=== PATIENT | female | born 1935 | race Caucasian/White ===

== ENCOUNTER 2016-04-03 10:58 | Inpatient (IN) | payer MEDICARE, OTHER ==
[~2016-04-03] VITALS: Ht 154.9 cm; Wt 140.0 kg
[2016-04-03 11:03] VITALS: BP 108/58; PULSE 102; RESP 20; TEMP 97.3; O2SAT 95
[2016-04-03] MEDS: SODIUM CHLOR 0.9% 1000 ML INJ 1,000 ML IV SCH ×2 (11:29→17:23)
[2016-04-03] MEDS ORDERED: PANTOPRAZOLE SODIUM 40 MG VIAL IVP ONE (11:30)
[2016-04-03] MEDS ORDERED: ONDANSETRON HCL 4 MG/2 ML VIAL IVP ONE (11:30)
[2016-04-03 11:34] VITALS: BP 95/61; PULSE 78; RESP 20; TEMP 97.4; O2SAT 95
--- NOTE | 2016-04-03 11:39 | PD ---
HPI Chief Complaint: General Weakness Time Seen by Provider: 11:20 Travel History International Travel<30 days: No Contact w/Intl Traveler<30days: No Traveled to known affect area: No History of Present Illness HPI 80-year-old female complains of abdominal pain, nausea vomiting, poor appetite. Family member states that the symptoms started a week ago. [facility] and had blood tests done and CT scan abdomen and pelvis done. 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 Patient also was Found to have UTI and put on cefuroxime. Patient has history of atrial fibrillation and on Xarelto. Patient also has history hypertension and dyslipidemia. Family member noticed patient has increasing jaundice for the past several days. Patient has poor appetite and has not been eating or drinking much recently. [facility] Social History Tobacco Use: No Allergies-Medications (Allergen,Severity, Reaction): Coded Allergies: Hydrocodone (Verified Allergy, Severe, Hallucinations, 04/03/16) Vasotec (Verified Allergy, Severe, Hallucinations, 04/03/16) Reported Meds & Prescriptions Reported Meds & Active Scripts Active Reported Atorvastatin (Atorvastatin Calcium) 40 Mg Tab 40 Mg PO HS Nystatin Liq 100,000 unit/ml Susp 5 Ml PO QID Protonix (Pantoprazole Sodium) 40 Mg Tab 40 Mg PO DAILY Galantamine (Galantamine Hydrobromide) 8 Mg Tab 8 Mg PO DAILY Diovan (Valsartan) 160 Mg Tab 160 Mg PO DAILY Xarelto (Rivaroxaban) 20 Mg Tab 20 Mg PO DAILY Review of Systems General / Constitutional: No: Fever Eyes: No: Visual changes HENT: No: Headaches Cardiovascular: No: Chest Pain or Discomfort Respiratory: No: Shortness of Breath Gastrointestinal: Positive: Nausea, Vomiting, Abdominal Pain Genitourinary: No: Dysuria Musculoskeletal: No: Pain Skin: Positive Change in Pigmentation, No Rash Neurologic: No: Weakness Psychiatric: No: Depression Endocrine: No: Polydipsia Hematologic/Lymphatic: No: Easy Bruising Physical Exam Narrative GENERAL: Well-nourished, well-developed patient. SKIN: Warm and dry. Icteric HEAD: Normocephalic. EYES: Bilateral scleral icterus. No injection or drainage. NECK: Supple, trachea midline. No JVD or lymphadenopathy. CARDIOVASCULAR: Regular rate and rhythm without murmurs, gallops, or rubs. RESPIRATORY: Breath sounds equal bilaterally. No accessory muscle use. GASTROINTESTINAL: Abdomen soft, non-tender, nondistended. MUSCULOSKELETAL: No cyanosis, or edema. BACK: Nontender without obvious deformity. No CVA tenderness. Neurologic exam: Patient's awake and alert oriented to name. Patient moves all extremities well. No obvious focal neurological deficit. Data Data Last Documented VS Vital Signs Date Time Temp Pulse Resp B/P Pulse Ox O2 Delivery O2 Flow Rate FiO2 04/03/16 12:29 97 04/03/16 11:34 97.4 78 20 95/61 04/03/16 11:03 Room Air Orders Complete Blood Count With Diff (04/03/16 11:29) Comprehensive Metabolic Panel (04/03/16 11:29) Prothrombin Time / Inr (Pt) (04/03/16 11:29) Act Partial Throm Time (Ptt) (04/03/16 11:29) Urinalysis - C+S If Indicated (04/03/16 11:29) Ct Abd/Pel W Iv Contrast(Rout) (04/03/16 11:29) Iv Access Insert/Monitor (04/03/16 11:29) Ecg Monitoring (04/03/16 11:29) Oximetry (04/03/16 11:29) Ondansetron Inj (Zofran Inj) (04/03/16 11:30) Pantoprazole Inj (Protonix Inj) (04/03/16 11:30) Sodium Chlor 0.9% 1000 Ml Inj (Ns 1000 M (04/03/16 11:29) Electrocardiogram (04/03/16 11:29) Chest, Single Ap (04/03/16 11:29) Ammonia (04/03/16 13:42) Iohexol 350 Inj (Omnipaque 350 Inj) (04/03/16 14:12) Lipase (04/03/16 16:06) Mri Abdomen W&W/O Contrast (04/03/16 ) Admit Order (Ed Use Only) (04/03/16 16:16) Labs Laboratory Tests Test 04/03/16 04/03/16 04/03/16 11:55 13:35 14:50 White Blood Count 6.3 TH/MM3 Red Blood Count 4.34 MIL/MM3 Hemoglobin 13.4 GM/DL Hematocrit 39.5 % Mean Corpuscular Volume 91.0 FL Mean Corpuscular Hemoglobin 30.8 PG Mean Corpuscular Hemoglobin 33.8 % Concent Red Cell Distribution Width 16.0 % Platelet Count 242 TH/MM3 Mean Platelet Volume 8.6 FL Neutrophils (%) (Auto) 77.9 % Lymphocytes (%) (Auto) 11.6 % Monocytes (%) (Auto) 9.1 % Eosinophils (%) (Auto) 0.2 % Basophils (%) (Auto) 1.2 % Neutrophils # (Auto) 4.9 TH/MM3 Lymphocytes # (Auto) 0.7 TH/MM3 Monocytes # (Auto) 0.6 TH/MM3 Eosinophils # (Auto) 0.0 TH/MM3 Basophils # (Auto) 0.1 TH/MM3 CBC Comment DIFF FINAL Differential Comment Prothrombin Time 17.0 SEC Prothromb Time International 1.5 RATIO Ratio Activated Partial 42.6 SEC Thromboplast Time Sodium Level 136 MEQ/L Potassium Level 4.6 MEQ/L Chloride Level 101 MEQ/L Carbon Dioxide Level 29.0 MEQ/L Anion Gap 6 MEQ/L Blood Urea Nitrogen 14 MG/DL Creatinine 0.90 MG/DL Estimat Glomerular Filtration 60 ML/MIN Rate Random Glucose 107 MG/DL Calcium Level 8.2 MG/DL Total Bilirubin 5.5 MG/DL Aspartate Amino Transf 214 U/L (AST/SGOT) Alanine Aminotransferase 161 U/L (ALT/SGPT) Alkaline Phosphatase 979 U/L Total Protein 6.4 GM/DL Albumin 2.3 GM/DL Lipase 449 U/L Urine Color YELLOW Urine Turbidity CLEAR Urine pH 6.5 Urine Specific [place] 1.012 Urine Protein NEG mg/dL Urine Glucose (UA) NEG mg/dL Urine Ketones NEG mg/dL Urine Occult Blood NEG Urine Nitrite NEG Urine Bilirubin NEG Urine Urobilinogen LESS THAN 2.0 MG/DL Urine Leukocyte Esterase NEG Urine RBC LESS THAN 1 /hpf Urine WBC 1 /hpf Microscopic Urinalysis Comment CULT NOT INDICATED Ammonia 17 MCMOL/L MDM Medical Decision Making Medical Screen Exam Complete: Yes Emergency Medical Condition: Yes Interpretation(s) 1340 p.m. Last Impressions Chest X-Ray 04/03/16 1129 Signed Impressions: Service Date/Time: Sunday, April 03, 2016 12:03 - CONCLUSION: 1. Blunting of the right costophrenic angle either related to small effusion or pleural/parenchymal scarring. 2. No pneumoperitoneum observed. Sal Walden Jr., MD 1340 p.m. CBC within normal limit. Calcium 8.2. Total bili 5.5. AST 214. ALT 161. Alkaline phosphatase 97 9. INR 1.5. 1552 PM. Last Impressions Chest X-Ray 04/03/169 Signed Impressions: Service Date/Time: Sunday, April 03, 2016 12:03 - CONCLUSION: 1. Blunting of the right costophrenic angle either related to small effusion or pleural/parenchymal scarring. 2. No pneumoperitoneum observed. Sal Walden Jr., MD Abdomen/Pelvis CT 04/03/161128 Signed Impressions: Service Date/Time: Sunday, April 03, 2016 14:03 - CONCLUSION: 1. Intrahepatic biliary dilatation with concern for possible pancreatic head mass versus mass at the level the danielle hepatis. Consider MRI to further evaluate. 2. Wall thickening involving the stomach. Exact etiology is uncertain. I'm not able to differentiate whether this relates to an infiltrating mass or this relates to an inflammatory process. 3. Mild hydronephrosis and hydroureter on the right. No obstructing lesion or stone observed. 4. Small volume ascites. 5. Small bilateral pleural effusions. Sal Walden Jr., MD Differential Diagnosis Differential diagnosis including gastritis, PUD, gastritis, cholecystitis, pancreatitis, colitis, UTI, pyelonephritis. Narrative Course 80-year-old female with abdominal pain, nausea vomiting, jaundice. Abnormal CT scan abdomen pelvis recently. Normal saline solution 1 25 cc an hour. Protonix 40 mg IV. Zofran 4 mg IV. Diagnosis Primary Impression: Pancreatic mass Additional Impressions: Jaundice Elevated LFTs Omid Yañez MD Apr 03, 2016 11:39
[2016-04-03] MEDS ORDERED: LIPI40TA PO (11:56)
[2016-04-03] MEDS ORDERED: XARE20TA PO (11:56)
[2016-04-03] MEDS ORDERED: DIOV160T6 PO (11:57)
[2016-04-03] MEDS ORDERED: GALA8TAB PO (11:59)
[2016-04-03] MEDS ORDERED: PROT40TA PO (12:00)
[2016-04-03] MEDS ORDERED: NYST1000 PO (12:03)
[2016-04-03 12:10] LABS: AUTOMATED NEUTROPHIL # 4.9 TH/MM3 (1.8-7.7); BASOPHIL # 0.1 TH/MM3 (0-0.2); BASOPHIL % 1.2 % (0.0-2.0); EOSINOPHIL % 0.2 % (0.0-4.0); HEMATOCRIT 39.5 % (35.0-46.0); HEMO FLAGS DIFF FINAL; LYMPH % 11.6 % (9.0-44.0); LYMPHOCYTE # 0.7 TH/MM3 (1.0-4.8); MEAN CORPUSCULAR HEMOGLOBIN 30.8 PG (27.0-34.0); MEAN CORPUSCULAR HGB CONC 33.8 % (32.0-36.0); MONO % 9.1 % (0.0-8.0); NEUT % 77.9 % (16.0-70.0); PLATELET COUNT 242 TH/MM3 (150-450); RED BLOOD COUNT 4.34 MIL/MM3 (4.00-5.30); WHITE BLOOD COUNT 6.3 TH/MM3 (4.0-11.0)
[2016-04-03 12:23] LABS: APTT (PATIENT) 42.6 SEC (24.3-30.1); INTERNATIONAL NORMALIZED RATIO 1.5 RATIO
--- NOTE | 2016-04-03 12:24 | RADRPT ---
EXAM DATE/TIME: 04/03/2016 12:03 [facility] COMPARISON: No previous studies available for comparison. INDICATIONS : General weakness, confusion. MEDICAL HISTORY : Hypertension. SURGICAL HISTORY : None. ENCOUNTER: Initial ACUITY: 1 week PAIN SCORE: 0/10 LOCATION: chest FINDINGS: A single portable frontal view of the chest shows blunting of the right costophrenic angle. Heart nor mal in size. Lungs are clear. The scoliotic and degenerative thoracic spine. No pneumothorax. No free air below either hemidiaphragm. CONCLUSION: 1. Blunting of the right costophrenic angle either related to small effusion or pleural/parenchymal s carring. 2. No pneumoperitoneum observed. Sal Walden Jr., MD on April 03, 2016 at 12:22 Board Certified Radiologist. This report was verified electronically.
[2016-04-03 12:29] VITALS: O2SAT 97
[2016-04-03 12:36] LABS: ANION GAP 6 MEQ/L (5-15); AST (GOT) 214 U/L (15-37); BLOOD UREA NITROGEN 14 MG/DL (7-18); CHLORIDE 101 MEQ/L (98-107); GLOMERULAR FILTRATION RATE 60 ML/MIN (>89); POTASSIUM 4.6 MEQ/L (3.5-5.1); SODIUM (NA) 136 MEQ/L (136-145)
[2016-04-03 12:47] LABS: ALKALINE PHOSPHATASE 979 U/L (45-117); ALT (GPT) 161 U/L (10-53); TOTAL BILIRUBIN ADULT 5.5 MG/DL (0.2-1.0)
[2016-04-03 13:42] LABS: BLOOD, URINE NEG (NEG); GLUCOSE,URINE NEG (NEG); KETONE, URINE NEG (NEG); NITRITE,URINE NEG (NEG); PH, URINE 6.5 (5.0-8.5); URINE COLOR YELLOW (YELLW/STRAW)
[2016-04-03 13:44] LABS: COMMENT (UR) CULT NOT INDICATED; CULTURE IF INDICATED CULT NOT INDICATED
[2016-04-03] MEDS ORDERED: IOHEXOL 350 MG/ML 10 ML VIAL (for RAD DIAG) IV ONE (14:12)
--- NOTE | 2016-04-03 15:42 | RADRPT ---
EXAM DATE/TIME: 04/03/2016 14:03 [facility] COMPARISON: No previous studies available for comparison. INDICATIONS : Diffuse abdominal pain with jaundice. Nausea and vomiting. IV CONTRAST: 95 cc Omnipaque 350 (iohexol) IV ORAL CONTRAST: No oral contrast ingested. RADIATION DOSE: 9.96 CTDIvol (mGy) MEDICAL HISTORY : None SURGICAL HISTORY : None. ENCOUNTER: Initial ACUITY: 1 week PAIN SCALE: 5/10 LOCATION: Diffuse abdomen. TECHNIQUE: Volumetric scanning of the abdomen and pelvis was performed. Using automated exposure control and ad justment of the mA and/or kV according to patient size, radiation dose was kept as low as reasonably achievable to obtain optimal diagnostic quality images. FINDINGS: LOWER LUNGS: Bilateral small pleural effusions. The right is larger than the left. No pericardial effusion. LIVER: Intrahepatic biliary dilatation is observed. This is most pronounced involving the left lobe. No disc rete hepatic mass observed. The portal vein is patent. Gallbladder is distended without stones. SPLEEN: Normal size without lesion. PANCREAS: The pancreatic tail shows some atrophy and mild dilatation of the pancreatic duct. The pancreatic hea d is prominent but I am not able to identify a discrete mass. KIDNEYS: There is moderate hydronephrosis and mild hydroureter on the right. No discernible stone or a destruc tive lesion observed. The left kidney is normal. ADRENAL GLANDS: Within normal limits. VASCULAR: There is no aortic aneurysm. BOWEL/MESENTERY: There is diffuse wall thickening involving the stomach most pronounced within the antrum. The remaini ng bowel structures are unremarkable. A small volume of ascitic fluid is noted. Colonic diverticulosi s is observed. ABDOMINAL WALL: Within normal limits. RETROPERITONEUM: There is no lymphadenopathy. BLADDER: No wall thickening or mass. REPRODUCTIVE: Within normal limits. INGUINAL: There is no lymphadenopathy or hernia. MUSCULOSKELETAL: A femoral neck screw seen on the right. CONCLUSION: 1. Intrahepatic biliary dilatation with concern for possible pancreatic head mass versus mass at the level the danielle hepatis. Consider MRI to further evaluate. 2. Wall thickening involving the stomach. Exact etiology is uncertain. I'm not able to differentiate whether this relates to an infiltrating mass or this relates to an inflammatory process. 3. Mild hydronephrosis and hydroureter on the right. No obstructing lesion or stone observed. 4. Small volume ascites. 5. Small bilateral pleural effusions. Sal Walden Jr., MD on April 03, 2016 at 14:38 Board Certified Radiologist. This report was verified electronically.
--- NOTE | 2016-04-03 16:41 | HHI.HP ---
[facility] Primary [facility] Physician No Primary Care Physician Admission Diagnosis pancreatic mass. Jaundice. Elevated LFTs. Diagnoses: (1) Jaundice Diagnosis: Principal (2) Elevated LFTs Diagnosis: Principal Chief Complaint: generalized weakness Travel History International Travel<30 Days: No Contact w/Intl Traveler <30 Da: No Traveled to Known Affected Are: No History of Present Illness patient is a 80 y/o female with history of dementia, CVA,atrial fibrillation and hypertension who was brought to ER with generalized weakness. most of the information was obtained from her daughter at the bedside. she says that she started to feel weak a few months ago and it seems that it's been getting worse. she was admitted to the hospital recently and was discharged after she was treated with UTI. her daughter says that she's lost about forty pounds since last January. her appetite is poor. she denies any abdominal pain, nausea or vomiting. there's no history of fever, chills or night sweats. she had paracentesis recently and during the recent hospital admission. Review of Systems Constitutional: COMPLAINS OF: Weight loss, Change in appetite, DENIES: Fever, Chills, Night Sweats Eyes: DENIES: Blurred vision, Diplopia, Vision loss, Double Vision Ears, nose, mouth, throat: DENIES: Tinnitus, Vertigo, Throat pain, Epistaxis Respiratory: DENIES: Apneas, Cough, Snoring, Wheezing, Hemoptysis, Sputum production, Shortness of breath Cardiovascular: DENIES: Chest pain, Palpitations, Syncope, Dyspnea on Exertion , PND, Lower Extremity Edema, Orthopnea, Claudication Gastrointestinal: DENIES: Abdominal pain, Black stools, Bloody stools, Constipation, Diarrhea, Nausea, Vomiting, Difficulty Swallowing, Anorexia Genitourinary: DENIES: Urinary frequency, Urgency, Hematuria, Dysuria Musculoskeletal: DENIES: Joint pain, Muscle aches, Stiffness, Joint Swelling Integumentary: DENIES: Rash Neurologic: DENIES: Abnormal gait, Headache, Localized weakness, Paresthesias, Seizures, Speech Problems, Tremor, Poor Balance Psychiatric: DENIES: Anxiety, Confusion, Mood changes, Depression, Hallucinations, Agitation, Suicidal Ideation, Homicidal Ideation, Delusions Past Family Social History Past Medical History atrial fibrillation CVA dementia hypertension Past Surgical History recent paracentesis Reported Medications Nystatin Liq 100,000 unit/ml Susp 5 Ml PO QID Protonix (Pantoprazole Sodium) 40 Mg Tab 40 Mg PO DAILY Galantamine (Galantamine Hydrobromide) 8 Mg Tab 8 Mg PO DAILY Diovan (Valsartan) 160 Mg Tab 160 Mg PO DAILY Xarelto (Rivaroxaban) 20 Mg Tab 20 Mg PO DAILY Allergies: Coded Allergies: Hydrocodone (Verified Allergy, Severe, Hallucinations, 04/03/16) Vasotec (Verified Allergy, Severe, Hallucinations, 04/03/16) Active Ordered Medications Current Medications Ondansetron HCl (Zofran Inj) 4 mg ONCE ONCE IVP Last administered on 11:30; Start 04/03/16 at 11:30; Stop 04/03/16 at 11:31; Status DC Pantoprazole Sodium 40 mg 40 mg ONCE ONCE IVP Last administered on 04/03/16 11:30; Start 04/03/16 at 11:30; Stop 04/03/16 at 11:31; Status DC Sodium Chloride (NS 1000 ml Inj) 1,000 ml @ 125 mls/hr Q8H IV Last administered on 04/03/16 11:29; Start 04/03/16 at 11:29; Stop 04/03/16 at 19:28 Iohexol (Omnipaque 350 Inj) 95 ml STK-MED ONCE IV Last administered on 14:12; Start 04/03/16 at 14:12; Stop 04/03/16 at 14:13; Status DC Family History not relevant to this admission. Social History no smoking or drinking. the daughter is planning to take her home. Physical Exam Vital Signs Vital Signs Date Time Temp Pulse Resp B/P Pulse Ox O2 Delivery O2 Flow Rate FiO2 04/03/16 12:29 97 04/03/16 11:34 97.4 78 20 95/61 95 04/03/16 11:03 97.3 102 20 108/58 95 Room Air Physical Exam GENERAL: jaundiced, in no apparent distress. SKIN: No rashes, ecchymoses or lesions. Cool and dry. HEAD: Atraumatic. Normocephalic. No temporal or scalp tenderness. EYES: Pupils equal round and reactive. Extraocular motions intact. No scleral icterus. No injection or drainage. ENT: Nose without bleeding, purulent drainage or septal hematoma. Throat without erythema, tonsillar hypertrophy or exudate. Uvula midline. Airway patent. NECK: Trachea midline. No JVD or lymphadenopathy. Supple, nontender, no meningeal signs. CARDIOVASCULAR: Regular rate and rhythm without murmurs, gallops, or rubs. RESPIRATORY: Clear to auscultation. Breath sounds equal bilaterally. No wheezes , rales, or rhonchi. GASTROINTESTINAL: Abdomen soft, non-tender, nondistended. No hepato-splenomegaly , or palpable masses. No guarding. MUSCULOSKELETAL: Extremities without clubbing, cyanosis, or edema. No joint tenderness, effusion, or edema noted. No calf tenderness. Negative Homans sign bilaterally. NEUROLOGICAL: Awake and alert. Cranial nerves II through XII intact. Motor and sensory grossly within normal limits. Five out of 5 muscle strength in all muscle groups. Normal speech. Laboratory Laboratory Tests Test 04/03/16 04/03/16 04/03/16 11:55 13:35 14:50 White Blood Count 6.3 Red Blood Count 4.34 Hemoglobin 13.4 Hematocrit 39.5 Mean Corpuscular Volume 91.0 Mean Corpuscular Hemoglobin 30.8 Mean Corpuscular Hemoglobin 33.8 Concent Red Cell Distribution Width 16.0 Platelet Count 242 Mean Platelet Volume 8.6 Neutrophils (%) (Auto) 77.9 Lymphocytes (%) (Auto) 11.6 Monocytes (%) (Auto) 9.1 Eosinophils (%) (Auto) 0.2 Basophils (%) (Auto) 1.2 Neutrophils # (Auto) 4.9 Lymphocytes # (Auto) 0.7 Monocytes # (Auto) 0.6 Eosinophils # (Auto) 0.0 Basophils # (Auto) 0.1 CBC Comment DIFF FINAL Differential Comment Prothrombin Time 17.0 Prothromb Time International 1.5 Ratio Activated Partial 42.6 Thromboplast Time Sodium Level 136 Potassium Level 4.6 Chloride Level 101 Carbon Dioxide Level 29.0 Anion Gap 6 Blood Urea Nitrogen 14 Creatinine 0.90 Estimat Glomerular Filtration 60 Rate Random Glucose 107 Calcium Level 8.2 Total Bilirubin 5.5 Aspartate Amino Transf 214 (AST/SGOT) Alanine Aminotransferase 161 (ALT/SGPT) Alkaline Phosphatase 979 Total Protein 6.4 Albumin 2.3 Urine Color YELLOW Urine Turbidity CLEAR Urine pH 6.5 Urine Specific [place] 1.012 Urine Protein NEG Urine Glucose (UA) NEG Urine Ketones NEG Urine Occult Blood NEG Urine Nitrite NEG Urine Bilirubin NEG Urine Urobilinogen LESS THAN 2.0 Urine Leukocyte Esterase NEG Urine RBC LESS THAN 1 Urine WBC 1 Microscopic Urinalysis Comment CULT NOT INDICATED Ammonia 17 Result Diagram: 04/03/16 1155 04/03/16 1155 Imaging Last Impressions Chest X-Ray 04/03/16 1129 Signed Impressions: Service Date/Time: Sunday, April 03, 2016 12:03 - CONCLUSION: 1. Blunting of the right costophrenic angle either related to small effusion or pleural/parenchymal scarring. 2. No pneumoperitoneum observed. Sal Walden Jr., MD Abdomen/Pelvis CT 04/03/16 1129 Signed Impressions: Service Date/Time: Sunday, April 03, 2016 14:03 - CONCLUSION: 1. Intrahepatic biliary dilatation with concern for possible pancreatic head mass versus mass at the level the danielle hepatis. Consider MRI to further evaluate. 2. Wall thickening involving the stomach. Exact etiology is uncertain. I'm not able to differentiate whether this relates to an infiltrating mass or this relates to an inflammatory process. 3. Mild hydronephrosis and hydroureter on the right. No obstructing lesion or stone observed. 4. Small volume ascites. 5. Small bilateral pleural effusions. Sal Walden Jr., MD EKG; sinus arrhythmia Assessment and Plan Assessment and Plan A/P - jaundice CT of the abdomen with possible pancreatic mass MRI of the abdomen pending-will consult GI. repeat LFT's in am -generalized weakness fall precautions- will consult PT -atrial fibrillation/ history of CVA; will hold Xarelto for now -mild right sided hydronephrosis with no obstructing lesion or stone- will place carrasco cath and monitor I/O -hypertension; BP on low side; will hold Diovan for now and will monitor -DVT prophylaxis with SCD's -DNR status per my discussion with the daughter Discussed Condition With ER physician, the patient and her daughter. Physician Certification 2 Midnight Certification Type: Admission for Inpatient Services Order for Inpatient Services The services are ordered in accordance with Medicare regulations or non- Medicare payer requirements, as applicable. In the case of services not specified as inpatient-only, they are appropriately provided as inpatient services in accordance with the 2-midnight benchmark. Estimated LOS (days): 2 days is the estimated time the patient will need to remain in the hospital, assuming treatment plan goals are met and no additional complications. Post-Hospital Plan: Not yet determined Bakari López MD Apr 03, 2016 16:41
[2016-04-03 17:02] VITALS: BP 130/75; PULSE 70; RESP 16; TEMP 97.4; O2SAT 96
[2016-04-03] MEDS ORDERED: GADODIAMIDE PF 287 MG/ML 10 ML VIAL (for RAD MRI) IV ONE (20:21)
[2016-04-03 20:30] VITALS: BP 126/73; PULSE 67; RESP 16; TEMP 98.2; O2SAT 97
[2016-04-03] MEDS ORDERED: ATOR40TA16 PO (20:44)
--- NOTE | 2016-04-03 20:59 | RADRPT ---
EXAM DATE/TIME: 04/03/2016 19:41 [facility] COMPARISON: CT ABDOMEN & PELVIS W CONTRAST, April 03, 2016, 14:03. INDICATIONS : Mass. CONTRAST: 12 cc Omniscan (gadodiamide) IV MEDICAL HISTORY : Dementia. Cerebrovascular disease. Hypertension. SURGICAL HISTORY : Total knee replacement, left. Total knee replacement, right. Rt Hip. ENCOUNTER: Initial ACUITY: 1 day PAIN SCORE: 2/10 LOCATION: Bilateral lower quadrant TECHNIQUE: Multiplanar, multisequence magnetic resonance imaging of the abdomen was performed without and with i ntravenous contrast. FINDINGS: Microlobulated appearing mass is seen in the pancreatic head, measures approximately 4.3 x 5.3 cm in greatest transaxial dimension. There is an inherently bright T1 signal within the lesion precontrast suggesting proteinaceous or mucinous debris. Any enhancement appears minimal. There is marked irregul ar ductal dilatation of the pancreatic head and body. No focal hepatic lesions seen. There is intrahepatic and ask her hepatic biliary distention. The gall bladder is distended. There is marked wall thickening of the stomach and first and second portions of the duodenum. There is omental caking in the upper abdomen and small ascites. CONCLUSION: 1. There is a relatively large pancreatic head mass but the the appearance is not typical of adenocar cinoma. 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 Certainly, malignancy should still be considered, especially as there is evidence of biliary obstruct ion and ascites. 2. There is marked wall thickening and inflammatory changes of the stomach and first and second porti ons of the duodenum. Gastritis/peptic ulcer disease would be in the differential but a primary gastri c carcinoma should also be considered. There is omental caking along the greater curvature of the sto mach which would also support the possibility of gastric malignancy. Ovarian or colon carcinoma can a lso cause omental metastatic disease but I don't see definite evidence of either of these. Direct vis ualization with endoscopy and possible ERCP recommended. Kar Bruce MD on April 03, 2016 at 20:45 Board Certified Radiologist. This report was verified electronically.
[2016-04-04] VITALS (8 sets, daily range): BP systolic 109–129; BP diastolic 57–79; PULSE 66–84; RESP 16–22; TEMP 96.3–98.7; O2SAT 93–99
[2016-04-04 08:04] LABS: ALKALINE PHOSPHATASE 868 U/L (45-117); ALT (GPT) 127 U/L (10-53); ANION GAP 8 MEQ/L (5-15); AST (GOT) 168 U/L (15-37); BICARBONATE 26.6 MEQ/L (21.0-32.0); BLOOD UREA NITROGEN 15 MG/DL (7-18); CHLORIDE 103 MEQ/L (98-107); GLOMERULAR FILTRATION RATE 53 ML/MIN (>89); POTASSIUM 4.3 MEQ/L (3.5-5.1); SODIUM (NA) 138 MEQ/L (136-145); TOTAL BILIRUBIN ADULT 4.3 MG/DL (0.2-1.0)
[2016-04-04] MEDS: PANTOPRAZOLE SOD 40 MG DELAYED RELEASE TAB PO SCH (09:00)
[2016-04-04] MEDS ORDERED: VALSARTAN 160 MG TAB PO SCH (09:00)
[2016-04-04] MEDS: GALANTAMINE HYDROBROMIDE 4 MG TAB PO SCH (09:00)
[2016-04-04] MEDS ORDERED: INFLUENZA VIRUS VACCINE (QUADRIVALENT) 0.5 ML SYR IM ONE (09:00)
--- NOTE | 2016-04-04 09:25 | MB ---
cc: CHICA STRONG DATE OF CONSULTATION: 04/03/2016 DATE OF : 1935 REASON FOR CONSULTATION Jaundice, abnormal CT scan. Thank you for the consultation. HISTORY OF PRESENT ILLNESS This is an 80-year-old pleasant lady who has mild dementia. She is accompanied by her daughter. Apparently she started having some poor appetite, not able to eat for the last three weeks, got worse in the last week. She lost about 40 pounds since January, complaining of abdominal discomfort but no pain. She has nausea and vomiting especially when she eats. The patient denied any previous GI history of pancreatic disease or other problems. The patient has a history of pancreatitis in the past during a recent hospital admission. PAST MEDICAL HISTORY 1. CVA. 2. Dementia. 3. Hypertension. 4. Pancreatitis. MEDICATIONS Medications are reviewed in the chart. ALLERGIES 1. HYDROCODONE. 2. VASOTEC. FAMILY HISTORY Noncontributory. SOCIAL HISTORY No tobacco or alcohol. REVIEW OF SYSTEMS A review of systems was limited because of the patient's dementia but the patient does not have any significant pain except HPI complaints. PHYSICAL EXAMINATION GENERAL: Alert, oriented, in no acute distress. The patient is jaundiced. VITAL SIGNS: Stable. HEENT: The patient has yellow sclera. . NECK: Supple. CHEST: Clear to auscultation and percussion. HEART: Regular rate and rhythm. ABDOMEN: Soft, nondistended, nontender. Positive bowel sounds. No hepatosplenomegaly . MUSCULOSKELETAL: No abnormality. NEUROLOGIC: , has dementia. LABORATORY STUDIES White blood count 6.3, hemoglobin 13.4, platelet 242. INR 1.5. Total bilirubin 5.5, AST 214, ALT 161, alkaline phosphatase 979, albumin 2.3, lipase 449. IMAGING CT scan showed intrahepatic biliary dilatation with concern for possible pancreatic head mass versus mass at the level of the danielle hepatis. Consideration for MRI. mass. ASSESSMENT AND PLAN An 80-year-old lady who has jaundice with elevated liver function tests and abnormal CT scan. Most likely this is a malignancy but pancreatitis cannot be excluded as an reason for her abnormality and lipase elevation. I am going to obtain an MRCP on her to evaluate the biliary tree . We are going to rule in with tumor markers. We will repeat liver function tests and lipase and if they are suspicious for malignancy I am going to do an ERCP with possible brushing biopsy and stent placement. Depending on how extensive her disease, will might need to get a surgical consult and oncology. MD VICKIE Mace/BT /7:36 PM /9:12 AM
--- NOTE | 2016-04-04 09:42 | HHI.PR ---
Subjective Remarks f/u; jaundice resting comfortably with no distress. no abdominal pain, nausea or vomiting. Objective Vitals Vital Signs Date Time Temp Pulse Resp B/P Pulse Ox O2 Delivery O2 Flow Rate FiO2 04/04/16 08:00 97.6 84 22 118/75 97 04/04/16 04:00 98.7 75 16 114/75 95 04/04/16 00:00 97.7 67 16 113/67 95 04/03/16 20:30 98.2 67 16 126/73 97 04/03/16 17:02 97.4 70 16 130/75 96 Room Air 04/03/16 12:29 97 04/03/16 11:34 97.4 78 20 95/61 95 04/03/16 11:03 97.3 102 20 108/58 95 Room Air I/O 04/03/16 04/03/16 04/03/16 04/04/16 04/04/16 04/04/16 07:00 15:00 23:00 07:00 15:00 23:00 Intake Total 0 ml Output Total 40 ml 200 ml 150 ml Balance -40 ml -200 ml -150 ml 0 ml Intake Oral 0 ml Output Urine Total 40 ml 200 ml 150 ml # Voids 1 Result Diagram: 04/03/16 1155 04/04/16 0555 Imaging Last Impressions Chest X-Ray 04/03/161128 Signed Impressions: Service Date/Time: Sunday, April 03, 2016 12:03 - CONCLUSION: 1. Blunting of the right costophrenic angle either related to small effusion or pleural/parenchymal scarring. 2. No pneumoperitoneum observed. Sal Walden Jr., MD Abdomen/Pelvis CT 04/03/16 1129 Signed Impressions: Service Date/Time: Sunday, April 03, 2016 14:03 - CONCLUSION: 1. Intrahepatic biliary dilatation with concern for possible pancreatic head mass versus mass at the level the danielle hepatis. Consider MRI to further evaluate. 2. Wall thickening involving the stomach. Exact etiology is uncertain. I'm not able to differentiate whether this relates to an infiltrating mass or this relates to an inflammatory process. 3. Mild hydronephrosis and hydroureter on the right. No obstructing lesion or stone observed. 4. Small volume ascites. 5. Small bilateral pleural effusions. Sal Walden Jr., MD Abdomen MRI 04/03/16 0000 Signed Impressions: Service Date/Time: Sunday, April 03, 2016 19:41 - CONCLUSION: 1. There is a relatively large pancreatic head mass but the the appearance is not typical of adenocarcinoma. 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 Certainly, malignancy should still be considered, especially as there is evidence of biliary obstruction and ascites. 2. There is marked wall thickening and inflammatory changes of the stomach and first and second portions of the duodenum. Gastritis/peptic ulcer disease would be in the differential but a primary gastric carcinoma should also be considered. There is omental caking along the greater curvature of the stomach which would also support the possibility of gastric malignancy. Ovarian or colon carcinoma can also cause omental metastatic disease but I don't see definite evidence of either of these. Direct visualization with endoscopy and possible ERCP recommended. Kar Bruce MD Objective Remarks GENERAL: This is a well-nourished, well-developed patient, in no apparent distress. CARDIOVASCULAR: Regular rate and regular rhythm without murmurs, gallops, or rubs. RESPIRATORY: Clear to auscultation. Breath sounds equal bilaterally. No wheezes , rales, or rhonchi. GASTROINTESTINAL: Abdomen soft, non-tender, nondistended. Normal, active bowel sounds MUSCULOSKELETAL: Extremities without clubbing, cyanosis, or edema. NEURO: Awake and alert Procedures none Medications and IVs Current Medications Ondansetron HCl (Zofran Inj) 4 mg ONCE ONCE IVP Last administered on 11:30; Start 04/03/16 at 11:30; Stop 04/03/16 at 11:31; Status DC Pantoprazole Sodium 40 mg 40 mg ONCE ONCE IVP Last administered on 04/03/16 11:30; Start 04/03/16 at 11:30; Stop 04/03/16 at 11:31; Status DC Sodium Chloride (NS 1000 ml Inj) 1,000 ml @ 125 mls/hr Q8H IV Last administered on 04/03/16 17:23; Start 04/03/16 at 11:29; Stop 04/03/16 at 19:28 ; Status DC Iohexol (Omnipaque 350 Inj) 95 ml STK-MED ONCE IV Last administered on 14:12; Start 04/03/16 at 14:12; Stop 04/03/16 at 14:13; Status DC Galantamine Hydrobromide (Razadyne) 8 mg DAILY PO Last administered on 09:00; Start 04/04/16 at 09:00 Pantoprazole Sodium (Protonix) 40 mg DAILY PO Last administered on 04/04/16 09 :00; Start 04/04/16 at 09:00 Valsartan (Diovan) 160 mg DAILY PO ; Start 04/04/16 at 09:00; Stop 04/04/16 at 09:00; Status DC Gadodiamide (Omniscan Pf Inj) 12 ml STK-MED ONCE IV Last administered on 20:21; Start 04/03/16 at 20:21; Stop 04/03/16 at 20:22; Status DC Influenza Virus Vaccine (Flu (Quadrivalent) Vaccine Inj) 0.5 ml ONCE ONCE IM Last administered on 04/04/16 09:10; Start 04/04/16 at 09:00; Stop 04/04/16 at 09:01; Status DC A/P Assessment and Plan A/P - jaundice CT of the abdomen with possible pancreatic mass MRI of the abdomen with pancreatic head mass with marked wall thickening and inflammatory changes of the stomach and first/ second portions of duodenum GI consulted. will monitor the LFT's -generalized weakness fall precautions- consulted PT -atrial fibrillation/ history of CVA; will hold Xarelto for now -mild right sided hydronephrosis with no obstructing lesion or stone- carrasco cath in place-will monitor I/O -hypertension; BP on low side; will hold Diovan for now and will monitor -DVT prophylaxis with SCD's -DNR status per my previous discussion with the daughter MaribelBakari MD Apr 04, 2016 09:42
[2016-04-04] MEDS ORDERED: PROPOFOL 200 MG/20 ML AMP IV ONE (13:39)
[2016-04-04] MEDS ORDERED: IOHEXOL 350 MG/ML 100 ML BTL (for RAD DIAG) OTHER ONE (13:45)
[2016-04-04] MEDS ORDERED: ceFAZolin INJ 1,000 MG VIAL IV ONE (14:00)
[2016-04-04] MEDS ORDERED: DO NOT ADM ANY ANTICOAGULANT DRUGS XX PRN (14:55)
--- NOTE | 2016-04-04 16:19 | RADRPT ---
EXAM DATE/TIME: 04/04/2016 14:18 [facility] COMPARISON: CT ABDOMEN & PELVIS W CONTRAST, April 03, 2016, 14:03. INDICATIONS : Obstruction. FLUORO TIME: 3.2 minutes IMAGE COUNT: 1 CONTRAST: Instilled by Ordering Physician MEDICAL HISTORY : Dementia. Cerebrovascular disease. Hypertension. SURGICAL HISTORY : None. ENCOUNTER: Subsequent ACUITY: 2 days PAIN SCORE: Non-responsive. LOCATION: Abdomen. FINDINGS: An ERCP was performed by the ordering physician. Only a single image has been provided. It demonstrates an endoscope in place with cannulation of pres umably the common duct which appears dilated. No intrahepatic bile ducts are visualized. CONCLUSION: ERCP as above. Please refer to endoscopist report for further details. Kar Starkey MD on April 04, 2016 at 16:14 Board Certified Radiologist. This report was verified electronically.
--- NOTE | 2016-04-04 16:31 | EKG ---
Date Performed: 04/03/2016 Time Performed: 12:44:55 PTAGE: 80 years EKG: Sinus rhythm WITH SINUS ARRHYTHMIA NORMAL ECG NO PREVIOUS TRACING DOCTOR: Jas Ball Interpretating Date/Time 04/04/2016 16:30:08
--- NOTE | 2016-04-04 20:49 | MB ---
cc: JEAN MARIE BERRIOS M.D. DATE OF CONSULTATION: 04/04/2016 REASON FOR CONSULTATION: Pancreatic mass and jaundice. The history comes from reviewing the chart, radiographic studies, speaking with the nursing staff and most importantly speaking with the patient's daughter, Melissa Frank. PATIENT PROFILE The patient is an 80 year old white female. She is . She was born in [place], [place]. She lives in an independent living facility. She does not smoke. Alcohol intake in the past was modest. HISTORY OF PRESENT ILLNESS The patient is an 80-year-old female who has a history of a previous stroke, dementia, atrial fibrillation and an elevated cholesterol. She was doing fairly well until the past two months when she began to lose weight. She has lost a total of 40 pounds and the weight loss has accelerated. She has had occasional upper abdominal discomfort. She became increasingly weak and her daughter noted she was jaundiced. She was brought to the emergency room and had a number of tests. On 04/03/2016, lytes, BUN and creatinine normal. Bilirubin 5.5, AST 214, ALT 161, alkaline phosphatase 979, albumin 2.3, lipase of 449. Alpha-fetoprotein 2.1, CEA 3.7, CA19-9 187. The following day the bilirubin was 4.3 and alk phos 868. IMAGING STUDIES: Consisted of a CAT scan of the abdomen and pelvis on 04/03/2016 showing a prominent pancreatic head and intrahepatic biliary dilation. There was wall thickening involving the stomach. There was mild hydronephrosis and hydroureter on the right without evidence of an obstructing lesion. There was a small amount of ascites and small bilateral effusions. An MRI of the abdomen on the same day showed a relatively large pancreatic mass. The appearance was not typical for adenocarcinoma. The comment by the radiologist reads, "this may be a serous cystadenoma with a large proteinaceous or mucinous component, certainly malignancy should still be considered. There is marked wall thickening and inflammatory changes of the stomach, first and second portions of the duodenum. There was omental caking along the greater curvature of the stomach, supporting the possibility of a gastric malignancy. It was suggested that the patient have endoscopy and possible ERCP." In talking to the patient's daughter today, she states that an ERCP was done and they were unable to cannulate the duct. PAST SURGICAL HISTORY: 1. Bilateral knee replacement. 2. Placement of tala in right hip after a fall and fracture. 3. Cataract. PAST MEDICAL HISTORY: 1. Dementia. 2. Atrial fibrillation. 3. Elevated cholesterol. 4. Cerebrovascular accident. ALLERGIES: NONE. MEDICATIONS: Prior to admission: 1. Atorvastatin. 2. Galantamine. 3. Protonix. 4. Xarelto 20 milligrams a day. 5. Diovan. FAMILY HISTORY: No history of malignancy. REVIEW OF SYSTEMS: Obtainable only through the daughter, consisting of poor appetite, 40 pound weight loss within the past two months. Occasional upper abdominal discomfort and a global progressive weakness. PHYSICAL EXAMINATION: Reveals an elderly frail female. She looks chronically ill. VITAL SIGNS: Blood pressure 130/70, respiratory rate 22, pulse 66. She is afebrile. O2 sat 99%. Head: Normocephalic. Sclerae and conjunctiva show a mild amount of icterus. Oropharynx: No mucosal lesions. There is no cervical, supraclavicular, axillary or inguinal adenopathy. Breasts: Without masses. Heart: Regular rhythm with occasional premature beat. Lungs: Clear. Abdomen: Soft. No palpable mass. There is mild epigastric tenderness. Extremities: No edema. Musculoskeletal: Muscle wasting. Neurologic: No focal weakness. The patient is not oriented to place. She believes that she is in a restaurant and does not understand that she is at [facility]. ASSESSMENT: The patient is an 80 year-old female. She has lost 40 pounds in the past two months. She has a large pancreatic mass and obstructive jaundice. It is my understanding from discussions with the daughter that ERCP was not successful in cannulating the bile duct to relieve the obstruction. RECOMMENDATIONS: It is highly likely that this is a malignancy given the mass and the 40 pound weight loss and the omental caking. She is clearly not a candidate for surgery, radiation therapy or chemotherapy. I believe there are two options: One option is simply to get Hospice involved now and not place a percutaneous stent to drain the liver. The second option would be to try to place a stent through the liver and eventually internalize the stent. I would recommend Hospice in either case. The rapidity of the weight loss and her weakened state, suggests that she does not have a long time to live. This was discussed with the patient's daughter. I have written a consult for Hospice. I asked the patient's daughter to contact the other family members and decide whether they want to proceed with a percutaneous biliary drainage. I reviewed the MRI images with the daughter that shows clearly the pancreatic mass. MD REJI Alvarez/EUGENIE /6:57 PM /8:33 PM SANDEEP
[2016-04-05] VITALS: BP 114/68; PULSE 70; RESP 16; TEMP 96.2; O2SAT 98
[2016-04-05 04:00] VITALS: BP 113/74; PULSE 75; RESP 16; TEMP 96; O2SAT 98
--- NOTE | 2016-04-05 06:22 | MR ---
cc: CHICA STRONG M.D., MOHAMMADREZA MD DATE: 04/04/2016 DATE OF : [address] López TYPE OF PROCEDURE 1. ERCP with sphincterotomy and stone removal. 2. EGD with biopsy. INDICATION FOR PROCEDURE An 80-year-old lady who had jaundice, abnormal CT scan with possible mass in the stomach and in the danielle hepatis versus pancreas. The patient also had jaundice. PROCEDURE After informing the patient and daughter about the procedure and complications, because the patient has dementia, the patient was intubated and sedated by Anesthesia. The scope was placed in the mouth and advanced under video guidance. There was an infiltrative mass in the body of the stomach which was biopsied. The scope was advanced to the duodenum. The ampulla was identified. There was a periampullary diverticulum. A cholangiogram was performed after cannulation and there was total obstruction of the common hepatic duct and I was not able to pass a wire across the total obstruction. I ask Dr. Walden from radiology to come to the OR and he was gracious to come and we looked at it again together and he felt that there was not enough room to pass the wire because of the total obstruction. He did not even think that he would be able to pass it with a PTC but he stated he will attend that tomorrow. When I did the sphincterotomy there was a small stone that popped out of the common bile duct. The procedure was terminated at that time. FINDINGS 1. Esophagus: Normal. 2. 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 Biopsy was done. 3. Duodenum: Periampullary diverticulum. 4. Total obstruction of the hepatic duct as above. RECOMMENDATIONS 1. Oncology consult. 2. The patient was given antibiotic during the procedure with Ancef one gram. 3. I discussed with the patient the potential poor prognosis. She will await consultation from oncology to determine the next course of action. 4. PTC tomorrow by radiology. MD VICKIE Mace/BT /3:22 PM /6:13 AM
[2016-04-05 07:58] LABS: INDIRECT BILIRUBIN 0.5 MG/DL (0.0-0.8)
[2016-04-05 08:00] VITALS: BP 120/75; PULSE 72; RESP 18; TEMP 95.1; O2SAT 94
[2016-04-05] MEDS: GALANTAMINE HYDROBROMIDE 4 MG TAB PO SCH (09:00)
--- NOTE | 2016-04-05 09:26 | HHI.PR ---
Subjective Remarks Patient denies nausea, vomiting, abdominal pain denies fevers or chills denies cp/sob stable vital signs Objective Vitals Vital Signs Date Time Temp Pulse Resp B/P Pulse Ox O2 Delivery O2 Flow Rate FiO2 04/05/16 08:00 95.1 72 18 120/75 94 04/05/16 04:00 96.0 75 16 113/74 98 04/05/16 00:00 96.2 70 16 114/68 98 04/04/16 20:00 96.3 69 16 109/79 98 04/04/16 18:12 97 Nasal Cannula 2.00 04/04/16 15:49 97.2 66 22 129/57 99 04/04/16 15:30 97.0 74 14 142/86 98 Nasal Cannula 2 04/04/16 15:00 70 14 122/76 97 Nasal Cannula 2 04/04/16 14:52 97.5 89 14 113/72 97 Nasal Cannula 2 04/04/16 12:30 98.5 76 16 126/76 97 04/04/16 12:18 96.6 68 20 112/70 93 I/O 04/04/16 04/04/16 04/04/16 04/05/16 04/05/16 04/05/16 07:00 15:00 23:00 07:00 15:00 23:00 Intake Total 700 ml 340 ml Output Total 150 ml 250 ml 500 ml 100 ml Balance -150 ml 450 ml -160 ml -100 ml Intake Oral 0 ml 240 ml IV Total 100 ml Other 700 ml Output Urine Total 150 ml 250 ml 500 ml 100 ml # Bowel Movements 0 Result Diagram: 04/03/16 1155 04/04/16 0555 Imaging Last Impressions GI Procedure 04/04/16 0000 Signed Impressions: Service Date/Time: Monday, April 04, 2016 14:18 - CONCLUSION: ERCP as above. Please refer to endoscopist report for further details. Kar Starkey MD Chest X-Ray 04/03/169 Signed Impressions: Service Date/Time: Sunday, April 03, 2016 12:03 - CONCLUSION: 1. Blunting of the right costophrenic angle either related to small effusion or pleural/parenchymal scarring. 2. No pneumoperitoneum observed. Sal Walden Jr., MD Abdomen/Pelvis CT 04/03/169 Signed Impressions: Service Date/Time: Sunday, April 03, 2016 14:03 - CONCLUSION: 1. Intrahepatic biliary dilatation with concern for possible pancreatic head mass versus mass at the level the danielle hepatis. Consider MRI to further evaluate. 2. Wall thickening involving the stomach. Exact etiology is uncertain. I'm not able to differentiate whether this relates to an infiltrating mass or this relates to an inflammatory process. 3. Mild hydronephrosis and hydroureter on the right. No obstructing lesion or stone observed. 4. Small volume ascites. 5. Small bilateral pleural effusions. Sal Walden Jr., MD Abdomen MRI 04/03/16 0000 Signed Impressions: Service Date/Time: Sunday, April 03, 2016 19:41 - CONCLUSION: 1. There is a relatively large pancreatic head mass but the the appearance is not typical of adenocarcinoma. 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 Certainly, malignancy should still be considered, especially as there is evidence of biliary obstruction and ascites. 2. There is marked wall thickening and inflammatory changes of the stomach and first and second portions of the duodenum. Gastritis/peptic ulcer disease would be in the differential but a primary gastric carcinoma should also be considered. There is omental caking along the greater curvature of the stomach which would also support the possibility of gastric malignancy. Ovarian or colon carcinoma can also cause omental metastatic disease but I don't see definite evidence of either of these. Direct visualization with endoscopy and possible ERCP recommended. Kar Bruce MD Objective Remarks GENERAL: This is a Thin, well-nourished, well-developed patient, in no apparent distress. CARDIOVASCULAR: Regular rate and regular rhythm without murmurs, gallops, or rubs. RESPIRATORY: Clear to auscultation. Breath sounds equal bilaterally. No wheezes , rales, or rhonchi. GASTROINTESTINAL: Abdomen soft, non-tender, nondistended. Normal, active bowel sounds MUSCULOSKELETAL: Extremities without clubbing, cyanosis, or edema. NEURO: Awake and alert Procedures none Medications and IVs Current Medications Medications (Trade) Dose Ordered Sig/Levar Route Start Time Stop Time Status Last Admin (Razadyne) 8 mg DAILY PO 04/04/16 09:00 04/04/16 09:00 (Protonix) 40 mg DAILY PO 04/04/16 09:00 04/04/16 09:00 Miscellaneous Information ALL NURSING DEPARTME... [facility] PRN XX 04/04/16 14:55 04/05/16 14:54 Urinary Catheter: Yes Assessment to: Remove Vascular Central Line Catheter: No A/P Problem List: (1) Pancreatic mass ICD Code: K86.9 Status: Acute Plan: CT of the abdomen with possible pancreatic mass. MRI of the abdomen with dedicated mass with marked wall thickening and inflammatory changes of the stomach and first forces second portions of the duodenum. GI consulted. The patient is status post ERCP with sphincterotomy. Appreciate medical oncology consultation recommendations. Pancreatic head mass is slightly malignant with patient's weight loss. Patient is not a candidate for chemotherapy or radiation therapy. Case has been discussed with the patient's daughter by medical oncology and hospice consult has been placed. (2) Jaundice ICD Code: R17 Status: Acute Plan: Due to Medicaid mass. Patient status post ERCP with sphincterotomy. (3) Elevated LFTs ICD Code: R94.5 Status: Acute Plan: Due to obstructive, painless jaundice. Status post ERCP with sphincterotomy. Transaminitis trending down. AST trending down from 160-135. AST trending down as well from 127-106. Alkaline phosphatase trending down from 868 to 794. Direct bilirubin elevated at 2.5 (4) Generalized weakness ICD Code: R53.1 Status: Acute Plan: Full precautions, consulted PT (5) Atrial fibrillation ICD Code: I48.91 Status: Chronic Plan: Now sinus rhythm. EKG on admission showed sinus rhythm with sinus arrhythmia at 71 bpm. Resume xarelto. (6) H/O: CVA (cerebrovascular accident) ICD Code: Z86.73 Status: Chronic Plan: Patient also developed a which was held initially. Continue Xarelto. (7) HTN (hypertension) ICD Code: I10 Status: Acute Plan: BP seems stable now without her home antihypertensive medication. will continue to hold for mow. (8) Hydronephrosis of right kidney ICD Code: N13.30 Status: Acute Plan: Mild hydronephrosis and hydroureter on the right with no obstructing lesion or stone seen on CT. [place] catheter in place, exit the old urine output. Remove [place] catheter. Assessment and Plan DVT prophylaxis: SCDs, resume Xarelto Patient is DO NOT RESUSCITATE per previous discussion with daughter. Discharge Planning Dc pending hospice consult. Problem Qualifiers (1) Atrial fibrillation: Qualified Code: I48.0 - Paroxysmal atrial fibrillation Prince Simon MD Apr 05, 2016 09:26
[2016-04-05] MEDS: PANTOPRAZOLE SOD 40 MG DELAYED RELEASE TAB PO SCH (11:09)
[2016-04-06] MEDS ORDERED: RIVAROXABAN 20 MG TAB PO SCH (09:00)
== END 2016-04-05 14:00 | disposition hospice, inpatient (51) | DRG 435 ==
LOC: NEPC 10:58 → NEDA 16:20 → HOCA 20:15
PROVIDERS: ADMIT Hospitalist; ATTEND Hospitalist
PROC: 0DB68ZX Excision of Stomach, Via Natural or Artificial Opening Endoscopic, Diagnostic (ICD-10-PCS; 2016-04-04)
PROC: 0FC98ZZ Extirpation of Matter from Common Bile Duct, Via Natural or Artificial Opening Endoscopic (ICD-10-PCS; principal; 2016-04-04 13:05)
DX: C25.0 Malignant neoplasm of head of pancreas (principal); K83.1 Obstruction of bile duct; R18.8 Other ascites; N13.30 Unspecified hydronephrosis; I48.0 Paroxysmal atrial fibrillation; F03.90 Unspecified dementia, unspecified severity, without behavioral disturbance, psychotic disturbance, mood disturbance, and anxiety; I10 Essential (primary) hypertension; E78.00 Pure hypercholesterolemia, unspecified; K80.50 Calculus of bile duct without cholangitis or cholecystitis without obstruction; Z79.01 Long term (current) use of anticoagulants
CPT/HCPCS: 71010; 74177; 74183; 74330; 80053; 80076; 81001; 82105; 82140; 82378; 83690; 85025; 85610; 85730; 86301; 88305; 88312; 90471; 90686; 93005; 96361; 96374; 96375; A9579; C1769; C9113; G0008; J0690; J2405; J3010; J7030; Q2038; Q9967